=== PATIENT | female | born 1950 | race Caucasian/White ===

== ENCOUNTER → 2017-10-07 | Outpatient (CLI) | payer BC | END | disposition home or self-care (01) | LOC: KCIC MAMMO 10:43 | DX: Z12.31 Encounter for screening mammogram for malignant neoplasm of breast (principal) | CPT/HCPCS: 77063; 77067 ==

== ENCOUNTER → 2018-12-19 | Outpatient (CLI) | payer BC ==
--- NOTE | 2018-12-19 14:28 | KCIC ---
Bilateral digital screening mammograms with 3-D tomosynthesis: Reason for examination: Routine screening. Comparison is made to previous study dated 10/07/2017. Bilateral mammograms in CC and oblique projections were obtained with 2-D imaging and 3-D tomosynthesis imaging on a Siemens Inspiration unit and reviewed on the workstation. Interpretation was made with the benefit of CAD. The skin and nipples show no abnormalities. No abnormal axillary lymph nodes are seen. The breast parenchyma is heterogeneously dense. (Breast density: Category C.) There continue to be multiple small circumscribed nodules bilaterally which appear to be stable. There are no new dominant masses, suspicious calcifications or architectural distortion. Impression: No evidence of malignancy. Recommend routine screening. Your patient's mammogram demonstrates that she has dense breast tissue (breast density category C or D), which could hide abnormalities, and if she has other risk factors for breast cancer that have been identified, she might benefit from supplemental screening tests that may be suggested by you as her ordering physician. Dense breast tissue, in and of itself, is a relatively common condition. Therefore, this information is not provided to cause undue concern, but rather to raise your awareness and to promote discussion with your patient regarding the presence of other risk factors, in addition to dense breast tissue. Your patient's mammography results will be sent to her. BI-RAD Category 2: Benign. "Our facility is accredited by the [employer] Mammography Program." This patient's information has been entered into a reminder system for the patient to be notified with the results of her examination and a target date for the next mammogram. Electronically signed by: Deepali Camilo MD (12/19/2018 2:25 PM) [id number]
== END | disposition home or self-care (01) ==
LOC: KCIC MAMMO 12:06
PROVIDERS: ATTEND Family Medicine
DX: Z12.31 Encounter for screening mammogram for malignant neoplasm of breast (principal)
CPT/HCPCS: 77063; 77067

== ENCOUNTER → 2020-11-04 | Outpatient (CLI) | payer BC ==
--- NOTE | 2020-11-04 16:09 | KCIC ---
EXAM: Bilateral screening mammogram. HISTORY: 69-year-old female presents for screening mammography. TECHNIQUE: Full-field digital craniocaudal and mediolateral oblique views of both breasts are obtaine d for evaluation. Computer aided detection was applied. COMPARISON: 12/19/2018 and 10/07/2017 BREAST PARENCHYMAL DENSITY: Level C - Heterogeneously dense. FINDINGS: There is no new suspicious asymmetric density, microcalcification or region of architectura l distortion. There are stable areas of asymmetry and nodularity within both breasts. There are multi ple benign calcifications. IMPRESSION: BI-RADS Category 2: Benign finding(s). RECOMMENDATION: Annual mammography is recommended. If your mammogram demonstrates that you have dense breast tissue, which could hide abnormalities, and if you have other risk factors for breast cancer that have been identified, you might benefit from s upplemental screening tests that may be suggested by your ordering physician. Dense breast tissue, i n and of itself, is a relatively common condition. This information is not provided to cause undue c oncern, but rather to raise your awareness and to promote discussion with your physician regarding th e presence of other risk factors, in addition to dense breast tissue. A report of your mammography re sults will be sent to you and your physician. You should contact your physician if you have any ques tions or concerns regarding this report. Mammography is a sensitive method for finding small breast cancers, but it does not detect them all a nd is not a substitute for careful clinical examination. A negative mammogram does not negate a clin ically suspicious finding and should not result in delay in biopsying a clinically suspicious abnorma lity. PQRS compliance statement - Patient information was entered into a reminder system with a target due date for the next mammogram. "Our facility is accredited by the [employer] Mammography Program." Electronically signed by: Kristine Aaron MD (11/04/2020 4:06 PM) [id number]
== END ==
LOC: KCIC MAMMO 13:12
PROVIDERS: ATTEND Family Medicine
DX: Z12.31 Encounter for screening mammogram for malignant neoplasm of breast (principal)
CPT/HCPCS: 77067

== ENCOUNTER → 2021-07-17 | Outpatient (CLI) | payer BC ==
--- NOTE | 2021-07-17 13:24 | KCIC ---
EXAM: Pelvis and left hip, 2 views; lumbar spine, 3 views. HISTORY: Pain. Sacroiliitis. COMPARISON: None. FINDINGS: Pelvis and left hip: A frontal view of the pelvis and frog-leg view the left hip are obtained. There is no acute fracture, dislocation or subluxation. There is marginal left acetabular and femoral head spurring. Lumbar spine: 3 views of the lumbar spine are obtained. There is minimal 2 mm grade 1 anterolisthesis of L4 on L5. There is disc space narrowing at this level. There is multilevel endplate remodeling. T here are bridging and partially bridging anterior osteophytes at the lower thoracic levels. There is facet arthropathy predominantly at the lower lumbar levels. The sacroiliac joints are intact. There i s minimal lumbar levocurvature centered at L4. IMPRESSION: 1. Multilevel degenerative change involving the lumbar spine, described in detail above. 2. Mild left hip osteoarthritis. Electronically signed by: Kristine Aaron MD (07/17/2021 1:21 PM) [id number]
== END ==
LOC: KCIC 12:39
PROVIDERS: ATTEND Family Medicine
DX: M47.816 Spondylosis without myelopathy or radiculopathy, lumbar region (principal); M48.061 Spinal stenosis, lumbar region without neurogenic claudication; M16.12 Unilateral primary osteoarthritis, left hip; M46.1 Sacroiliitis, not elsewhere classified; M43.16 Spondylolisthesis, lumbar region; M25.78 Osteophyte, vertebrae
CPT/HCPCS: 72100; 73501